=== PATIENT | female | born 1930 | race Asian ===

== ENCOUNTER → 2016-09-17 | Outpatient (CLI) | payer MEDICARE | END | disposition home or self-care (01) | LOC: RADPV 10:10 | PROVIDERS: ATTEND Orthopaedic Surgery | DX: S52.591D Other fractures of lower end of right radius, subsequent encounter for closed fracture with routine healing (principal); S62.394D Other fracture of fourth metacarpal bone, right hand, subsequent encounter for fracture with routine healing ==